=== PATIENT | male | born 1985 | race Native Hawaiian/Other Pacific Islander ===

== ENCOUNTER 2017-10-03 16:50 | Outpatient (CLI) | payer BC | END 2017-10-03 19:06 | disposition home or self-care (01) | LOC: CT 16:50 | DX: R31.9 Hematuria, unspecified (principal); R30.0 Dysuria; R10.9 Unspecified abdominal pain ==

== ENCOUNTER 2018-02-27 11:02 | Outpatient (CLI) | payer BC | END 2018-02-27 20:02 | disposition home or self-care (01) | LOC: RAD 11:02 | DX: R07.81 Pleurodynia (principal) ==

== ENCOUNTER 2023-05-18 10:50 | Emergency (ER) | payer OTHER ==
[~2023-05-18] VITALS: Ht 172.7 cm; Wt 79.4 kg
[2023-05-18 11:29] LABS: PLATELET COUNT 188 K/uL (142-355)
[2023-05-18 11:37] LABS: POTASSIUM 3.6 mmol/L (3.6-5.2)
[2023-05-18 11:48] LABS: PARTIAL THROMBOPLASTIN TIME 25.8 SECONDS (23.9-36.7)
[2023-05-18 13:45] VITALS: BP 130/86; TEMP 98.4
== END 2023-05-18 13:45 | disposition home or self-care (01) ==
LOC: ED 10:50
PROVIDERS: Family Medicine
DX: R00.2 Palpitations (principal); L55.9 Sunburn, unspecified; I10 Essential (primary) hypertension; E86.0 Dehydration
CPT/HCPCS: 36415; 80053; 82550; 84443; 84484; 85027; 85610; 85730; 93005; 96360; 99284